=== PATIENT | female | born 1960 | race Asian ===

== ENCOUNTER 2022-05-24 16:07 | Emergency (ER) | payer OTHER ==
--- OUTSIDE RECORDS SUMMARY | 2022-05-24 16:13 | XMS REPORT | Continuity of Care Document ---
:1960 Author Organization [facility] t Address [address] [place] [address] [address] [place] [address] Care Team Providers Name Role Phone DR GÉNESIS GERMAN Attending Clinician Unavailable DR GÉNESIS GERMAN Admitting Clinician Unavailable Problems This patient has no known problems. Allergies, Adverse Reactions, Alerts Allergy Allergy Status Severity Reaction(s) Onset Inactive Treating Comm ents Source Name Type Date Date Clinician No Known DA Active [facility] Medications This patient has no known medications. Vital Signs Vital Name Observation Time Observation Value Comments Source Height 2021-01-16 12:04:00 160.02 CM Weight 2021-01-16 12:04:00 75.29 KG Height 2021-01-14 15:21:00 160.02 CM Weight 2021-01-14 15:21:00 74.84 KG Procedures Procedure Date / Time Performed Performing Clinician [facility] e REPLACEMENT LT AUD 2021-01-16 00:00:00 Sheeba Fonseca edical [facility] Center Encounters Start End Encounter Admission Attending Care Care Encounter Source Date/Time Date/Time Type Type Clinicians Facility Department ID 2021-01-16 2021-01-16 Outpatient Jeny GERMAN Jeny [facility] [id number] 10:24:00 17:15:00 GÉNESIS [facility] Results This patient has no known results.
[2022-05-24] MEDS ORDERED: DICYCLOMINE HCL 20 MG/2 ML AMP IM ONE (17:25)
[2022-05-24] MEDS ORDERED: FAMOTIDINE 20 MG/2 ML VIAL IV ONE (17:25)
[2022-05-24] MEDS ORDERED: NA CHLORIDE 0.9% 500 ML ONE (17:25)
[2022-05-24] MEDS ORDERED: ONDANSETRON 4 MG/2 ML VIAL ONE (17:25)
[2022-05-24 17:55] LABS: Hematocrit 42.7 % (36.0-45.0); Lymphocytes % 36.8 % (15.3-44.8); MCV 96.2 fL (80-100); MPV 8.3 fL (7.6-11.3); RBC Red Blood Cell Count 4.44 M/uL (3.86-4.86)
[2022-05-24 18:11] LABS: Albumin 3.7 g/dL (3.4-5.0); Bilirubin Total 0.3 mg/dL (0.2-1.0); Magnesium 2.1 mg/dL (1.8-2.4); Potassium 4.4 mmol/L (3.5-5.1); Protein, Total 7.9 g/dL (6.4-8.2)
--- NOTE | 2022-05-24 19:05 | RAD REPORT ---
EXAM DESCRIPTION: CT - Abdomen Pelvis W Contrast - 05/24/2022 6:44 pm CLINICAL HISTORY: Abdominal pain COMPARISON: none. TECHNIQUE: Computed axial tomography of the abdomen pelvis was obtained. 100 cc Isovue-300 was admin istered intravenously. Oral contrast was not requested which limits evaluation of bowel and appendix All CT scans are performed using dose optimization technique as appropriate and may include automated exposure control or mA/KV adjustment according to patient size. FINDINGS: The liver, spleen, pancreas, adrenal and right kidney appear unremarkable. 2 millimeter calculus left kidney. No hydronephrosis There is no evidence of diverticulitis. Normal appendix. Cholelithiasis. Gallbladder wall does not appear thickened Small umbilical hernia Fluid within nondilated bowel IMPRESSION: Cholelithiasis Fluid within nondilated bowel. This may indicate an enteritis
[2022-05-24 19:49] LABS: Urine Blood Trace-lysed (Negative); Urine Glucose Negative (Negative); Urine Protein Negative (Negative); Urine Specific Gravity <=1.005 (1.005-1.030); Urine pH 5.5 (5.0-7.0)
[2022-05-24] MEDS ORDERED: DIPHENOX/ATROP SULF 1 TAB PO ONE (20:01)
--- NOTE | 2022-05-24 20:04 | EDPHYS ---
Physician Documentation [facility] Name: April Link Age: 62 yrs Sex: Female : 1960 Arrival Date: 05/24/2022 Time: 16:15 Bed 14 Private MD: ED Physician Bernabe Freeman HPI: 05/24 17:05 This 62 yrs old Female presents to ER via Ambulatory with complaints of Abdominal cp Pain, Diarrhea. 17:05 The patient presents with abdominal pain that is diffuse, abdominal distention that is cp diffuse. Onset: The symptoms/episode began/occurred 3 day(s) ago. 17:05 The symptoms do not radiate. Associated signs and symptoms: Pertinent positives: cp anorexia, Pertinent negatives: blood in stools, constipation, dysuria, fever, headache, hematuria, vomiting blood. The symptoms are described as achy. Historical: - Allergies: 16:42 No Known Allergies; hb - Immunization history:: Adult Immunizations up to date. - Social history:: Smoking status: Patient denies any tobacco usage or history of. ROS: 17:10 Constitutional: Negative for body aches, chills, fever. cp 17:10 Eyes: Negative for injury, pain, redness, and discharge. cp 17:10 Abdomen/GI: Positive for abdominal pain, nausea, vomiting, and diarrhea, Negative for constipation. 17:10 ENT: Negative for drainage from ear(s), ear pain, sore throat, difficulty swallowing, cp difficulty handling secretions. 17:10 Cardiovascular: Negative for chest pain, edema, palpitations. 17:10 Respiratory: Negative for cough, shortness of breath, wheezing. 17:10 Back: Negative for pain at rest, pain with movement, radiated pain. 17:10 : Negative for urinary symptoms. 17:10 Neuro: Positive for weakness, Negative for altered mental status, dizziness, headache. 17:10 All other systems are negative. Exam: 17:15 Constitutional: The patient appears in no acute distress, alert, awake, non-toxic, well cp developed, well nourished, uncomfortable. 17:15 Head/Face: Normocephalic, atraumatic. cp 17:15 Eyes: Periorbital structures: appear normal, Conjunctiva: normal, no exudate, no cp injection, Sclera: no appreciated abnormality, Lids and lashes: appear normal, bilaterally. 17:15 ENT: External ear(s): are unremarkable, Nose: is normal, Mouth: Lips: moist, Oral mucosa: pink and intact, moist. 17:15 Neck: ROM/movement: is normal, is supple, without pain, no range of motions limitations.cp 17:15 Chest/axilla: Inspection: normal. 17:15 Cardiovascular: Rate: normal, Rhythm: regular, Edema: is not appreciated, JVD: is not appreciated. 17:15 Respiratory: the patient does not display signs of respiratory distress, Respirations: normal, no use of accessory muscles, no retractions, labored breathing, is not present, Breath sounds: are clear throughout, no decreased breath sounds, no stridor, no wheezing. 17:15 Abdomen/GI: Inspection: abdomen appears normal, Bowel sounds: active, all quadrants, Palpation: soft, in all quadrants, moderate abdominal tenderness, in the right lower quadrant and left lower quadrant, rebound tenderness, is not appreciated, involuntary guarding, is not appreciated. 17:15 Back: pain, is absent, ROM is normal. 17:15 Skin: no rash present. 17:15 Neuro: Orientation: to person, place \T\ time. Mentation: is normal, Motor: moves all fours, strength is normal, Sensation: is normal. Vital Signs: 16:41 BP 136 / 86; Pulse 88; Resp 16; Temp 98.5; Pulse Ox 100% on R/A; Weight 65.77 kg; hb Height 5 ft. 3 in. (160.02 cm); Pain 5/10; 18:00 BP 116 / 74; Pulse 69; Resp 18; Pulse Ox 100% on R/A; em6 19:43 BP 124 / 84; Pulse 70; Resp 18; Pulse Ox 100% on R/A; em6 16:41 Body Mass Index 25.69 (65.77 kg, 160.02 cm) hb MDM: 16:45 Patient medically screened. cp 18:00 Differential diagnosis: cholecystitis, Cholelithiasis, diverticulitis, non-specific abd cp pain, pancreatitis, Pyelonephritis, Ureterolithiasis, urinary tract infection, colitis. 20:02 Data reviewed: vital signs, nurses notes, lab test result(s), radiologic studies, CT cp scan. 20:02 Counseling: I had a detailed discussion with the patient and/or guardian regarding: the cp historical points, exam findings, and any diagnostic results supporting the discharge/admit diagnosis, lab results, radiology results, to return to the emergency department if symptoms worsen or persist or if there are any questions or concerns that arise at home. Response to treatment: the patient's symptoms have markedly improved after treatment, and as a result, I will discharge patient. Special discussion: Based on the patient's Hx, exam, and Dx evaluation, there is no indication for emergent surgery or inpatient Tx. It is understood by the patient/guardian that if the Sx's persist or worsen they need to return immediately for re-evaluation. 05/24 17:02 Order name: CBC with Diff; Complete Time: 19:33 cp 05/24 19:33 Interpretation: Reviewed. 05/24 17:02 Order name: CMP; Complete Time: 19:33 cp 05/24 19:34 Interpretation: Normal except: GFR 88; GLOB 4.2; A/G 0.9. 05/24 17:02 Order name: Lipase; Complete Time: 19:33 cp 05/24 17:02 Order name: Urine Microscopic Only 05/24 17:02 Order name: Magnesium; Complete Time: 19:33 cp 05/24 19:33 Interpretation: Reviewed. 05/24 19:49 Order name: Urine Dipstick-Ancillary; Complete Time: 19:51 EDOH 05/24 19:51 Interpretation: Normal except: UBLD Trace-lysed; UESTR 1+. 05/24 17:02 Order name: CT Abd/Pelvis - IV Contrast Only 05/24 19:06 Order name: CT EDOH 05/24 20:24 Order name: Urine Culture EDOH 05/24 17:02 Order name: IV Saline Lock; Complete Time: 17:52 cp 05/24 17:02 Order name: Labs collected and sent; Complete Time: 17:52 cp 05/24 19:59 Order name: PO challenge; Complete Time: 20:09 cp Administered Medications: 17:30 Drug: Pepcid (famotidine) 20 mg Route: IVP; Site: left antecubital; em6 18:00 Follow up: Response: No adverse reaction em6 17:30 Drug: Zofran (Ondansetron) 4 mg Route: IVP; Site: left antecubital; em6 18:00 Follow up: Response: No adverse reaction em6 17:30 Drug: NS 0.9% 500 ml Route: IV; Rate: 125 ml/hr; Site: left antecubital; em6 19:51 Follow up: Response: No adverse reaction em6 20:35 Follow up: Response: No adverse reaction; IV Status: Completed infusion; IV Intake: em6 500ml 17:30 Drug: NS 0.9% 500 ml Route: IV; Rate: bolus; Site: left antecubital; em6 20:35 Follow up: Response: No adverse reaction; IV Status: Completed infusion; IV Intake: em6 500ml 17:30 Drug: Bentyl (dicyclomine) 20 mg Route: IM; Site: right deltoid; em6 18:00 Follow up: Response: No adverse reaction em6 20:07 Drug: LoMOTIL (diphenoxylate-atropine) 2 tabs Route: PO; em6 20:35 Follow up: Response: No adverse reaction em6 Disposition Summary: 05/24/22 20:03 Discharge Ordered Location: Home cp Problem: new cp Symptoms: have improved cp Condition: Stable cp Diagnosis - Diarrhea, unspecified cp - Nausea with vomiting, unspecified cp Followup: cp - With: Private Physician - When: 1 - 2 days - Reason: Worsening of condition Discharge Instructions: - Discharge Summary Sheet cp - Food Choices to Help Relieve Diarrhea, Adult cp - Diarrhea, Adult cp - Nausea and Vomiting, Adult cp Forms: - Medication Reconciliation Form cp - Thank You Letter cp - Antibiotic Education cp - Prescription Opioid Use cp - Work release form em6 Prescriptions: - Zofran 4 mg Oral Tablet - take 1 tablet by ORAL route every 12 hours As needed; 20 tablet; Refills: 0, cp Product Selection Permitted - Lomotil 2.5-0.025 mg Oral Tablet - take 1 tablet by ORAL route every 6 hours As needed; 20 tablet; Refills: 0, cp Product Selection Permitted Signatures: Dispatcher [employer] EDMS Jose Winkler PA PA cp Baxter, Heather, RN RN hb Martinez, Erika, RN RN em6 Corrections: (The following items were deleted from the chart) 18:22 17:05 Onset: The symptoms/episode began/occurred 2 day(s) ago, cp cp 19:34 19:33 Normal except: GFR 88. cp cp 19:34 19:34 Normal except: GFR 88; GLOB 4.2. cp cp
--- NOTE | 2022-05-24 20:04 | ER ---
Nurse's Notes [facility] Name: April Link Age: 62 yrs Sex: Female : 1960 Arrival Date: 05/24/2022 Time: 16:15 Bed 14 Private MD: Diagnosis: Diarrhea, unspecified;Nausea with vomiting, unspecified Presentation: 05/24 16:41 Chief complaint: Diarrhea and abdominal pain x 3 days, vomit x 1 today. Coronavirus hb screen: Client presents with at least one sign or symptom that may indicate coronavirus-19. Provider contacted for isolation considerations. Ebola Screen: No symptoms or risks identified at this time. Initial Sepsis Screen: Does the patient meet any 2 criteria? No. Patient's initial sepsis screen is negative. Does the patient have a suspected source of infection? No. Patient's initial sepsis screen is negative. Risk Assessment: Do you want to hurt yourself or someone else? Patient reports no desire to harm self or others. Onset of symptoms was May 22, 2022. 16:41 Method Of Arrival: Ambulatory hb 16:41 Acuity: ROBER 3 hb Triage Assessment: 16:42 General: Appears in no apparent distress. Behavior is calm, cooperative. Pain: Pain hb currently is 5 out of 10 on a pain scale. Neuro: Level of Consciousness is awake, alert, obeys commands, Oriented to person, place, time, situation. Cardiovascular: Patient's skin is warm and dry. Respiratory: Respiratory effort is even, unlabored, Respiratory pattern is regular, symmetrical. Historical: - Allergies: 16:42 No Known Allergies; hb - Immunization history:: Adult Immunizations up to date. - Social history:: Smoking status: Patient denies any tobacco usage or history of. Screenin:43 Abuse screen: Denies threats or abuse. Denies injuries from another. Nutritional hb screening: No deficits noted. Tuberculosis screening: No symptoms or risk factors identified. Fall Risk None identified. Assessment: 16:43 General: SEE TRIAGE ASSESSMENT. hb 17:00 General: Appears uncomfortable, Behavior is cooperative. Pain: Complains of pain in em6 right lower quadrant and left lower quadrant Pain does not radiate. Pain currently is 5 out of 10 on a pain scale. Quality of pain is described as sharp. Neuro: Level of Consciousness is awake, alert, obeys commands, Oriented to person, place, time, situation, Reports headache frontal area. Cardiovascular: Patient's skin is warm and dry. Respiratory: Airway is patent Respiratory effort is even, unlabored, Respiratory pattern is regular, symmetrical, Breath sounds are clear bilaterally. GI: Abdomen is non-distended, Abd is soft and non tender X 4 quads. Reports lower abdominal pain, diarrhea, nausea, vomiting. : No signs and/or symptoms were reported regarding the genitourinary system. EENT: No signs and/or symptoms were reported regarding the EENT system. Derm: No signs and/or symptoms reported regarding the dermatologic system. Musculoskeletal: Circulation, motion, and sensation intact. Range of motion: intact in all extremities. 18:06 Reassessment: Patient appears in no apparent distress at this time. No changes from em6 previously documented assessment. Patient and/or family updated on plan of care and expected duration. Pain level reassessed. Patient is alert, oriented x 3, equal unlabored respirations, skin warm/dry/pink. 19:00 Reassessment: Patient appears in no apparent distress at this time. No changes from em6 previously documented assessment. Patient and/or family updated on plan of care and expected duration. Pain level reassessed. Patient is alert, oriented x 3, equal unlabored respirations, skin warm/dry/pink. 20:00 Reassessment: Patient appears in no apparent distress at this time. No changes from em6 previously documented assessment. Patient and/or family updated on plan of care and expected duration. Pain level reassessed. Patient is alert, oriented x 3, equal unlabored respirations, skin warm/dry/pink. 20:36 Reassessment: food and drink tolerated. em6 Vital Signs: 16:41 BP 136 / 86; Pulse 88; Resp 16; Temp 98.5; Pulse Ox 100% on R/A; Weight 65.77 kg; hb Height 5 ft. 3 in. (160.02 cm); Pain 5/10; 18:00 BP 116 / 74; Pulse 69; Resp 18; Pulse Ox 100% on R/A; em6 19:43 BP 124 / 84; Pulse 70; Resp 18; Pulse Ox 100% on R/A; em6 16:41 Body Mass Index 25.69 (65.77 kg, 160.02 cm) hb ED Course: 16:15 Patient arrived in ED. am2 16:17 Jose Winkler PA is PHCP. cp 16:17 Bernabe Freeman MD is Attending Physician. cp 16:42 Triage completed. hb 16:43 Arm band placed on. hb 16:43 Patient has correct armband on for positive identification. hb 17:21 Sarah De Guzman, RN is Primary Nurse. em6 17:30 Inserted saline lock: 20 gauge in right antecubital area, using aseptic technique. em6 Blood collected. 19:06 CT In Process Unspecified. EDMS 19:52 Urine Microscopic Only Sent. em6 20:36 No provider procedures requiring assistance completed. IV discontinued, intact, em6 bleeding controlled, No redness/swelling at site. Pressure dressing applied. Administered Medications: 17:30 Drug: Pepcid (famotidine) 20 mg Route: IVP; Site: left antecubital; em6 18:00 Follow up: Response: No adverse reaction em6 17:30 Drug: Zofran (Ondansetron) 4 mg Route: IVP; Site: left antecubital; em6 18:00 Follow up: Response: No adverse reaction em6 17:30 Drug: NS 0.9% 500 ml Route: IV; Rate: 125 ml/hr; Site: left antecubital; em6 19:51 Follow up: Response: No adverse reaction em6 20:35 Follow up: Response: No adverse reaction; IV Status: Completed infusion; IV Intake: em6 500ml 17:30 Drug: NS 0.9% 500 ml Route: IV; Rate: bolus; Site: left antecubital; em6 20:35 Follow up: Response: No adverse reaction; IV Status: Completed infusion; IV Intake: em6 500ml 17:30 Drug: Bentyl (dicyclomine) 20 mg Route: IM; Site: right deltoid; em6 18:00 Follow up: Response: No adverse reaction em6 20:07 Drug: LoMOTIL (diphenoxylate-atropine) 2 tabs Route: PO; em6 20:35 Follow up: Response: No adverse reaction em6 Medication: 16:43 VIS not applicable for this client. hb Intake: 20:35 IV: 500ml; Total: 500ml. em6 20:35 IV: 500ml; Total: 1000ml. em6 Outcome: 20:03 Discharge ordered by . joel 20:36 Discharged to home ambulatory. em6 20:36 Condition: stable 20:36 Discharge instructions given to patient, significant other, Instructed on discharge instructions, follow up and referral plans. medication usage, Demonstrated understanding of instructions, follow-up care, medications, Prescriptions given X 2. 20:37 Patient left the ED. em6 Signatures: Dispatcher [employer] EDMS Jose Winkler PA PA cp Baxter, Heather, RN RN Mesha Almazan [facility] Sarah De Guzman RN RN em6 Corrections: (The following items were deleted from the chart) 19:20 17:30 NS 0.9% 500 ml IV at bolus in right antecubital em6 em6 19:21 17:30 Pepcid (famotidine) 20 mg IVP in right antecubital em6 em6 19:21 17:30 Zofran (Ondansetron) 4 mg IVP in right antecubital em6 em6
[2022-05-24 20:19] LABS: Urine Bacteria <20 /HPF (<20); Urine Mucus Slight /HPF (None Seen); Urine WBC Clump Occasional /HPF (None Seen)
[2022-05-24 20:46] VITALS: TEMP 98.5; O2SAT 100
[2022-05-24 20:57] VITALS: BP 124/84
== END 2022-05-24 20:37 | disposition home or self-care (01) ==
LOC: ER 16:07
DX: R19.7 Diarrhea, unspecified (principal); R11.2 Nausea with vomiting, unspecified
CPT/HCPCS: 96361; 87088; 85025; 87086; 36415; 83735; 83690; 80053; 74177; 96375; 96372; 96374; 99284; Q9967; J0500; J7040; J2405; 81003; 81015